=== PATIENT | male | born 1985 | race Hispanic/Latino ===

== ENCOUNTER 2022-05-25 22:33 | Emergency (ER) | payer SELFPAY ==
[2022-05-25] MEDS ORDERED: Famotidine 20 MG TAB ONE (23:48)
[2022-05-25] MEDS ORDERED: diphenhydrAMINE 25 MG CAP ONE (23:48)
[2022-05-25] MEDS ORDERED: hydrOXYzine 25 MG TAB ONE (23:50)
== END 2022-05-26 00:33 | disposition home or self-care (01) ==
LOC: ERS 22:33
DX: L29.9 Pruritus, unspecified (principal)
CPT/HCPCS: 99282

== ENCOUNTER 2023-03-25 12:51 | Emergency (ER) | payer SELFPAY | END 2023-03-25 15:29 | disposition home or self-care (01) | LOC: ERS 12:51 | DX: S22.32XA Fracture of one rib, left side, initial encounter for closed fracture (principal); W22.8XXA Striking against or struck by other objects, initial encounter; Y99.0 Civilian activity done for income or pay ==